=== PATIENT | female | born 1935 | race Caucasian/White ===

== ENCOUNTER 2019-04-23 20:03 | Emergency (ER) | payer MEDICARE, BC ==
[~2019-04-23] VITALS: Ht 162.6 cm; Wt 48.5 kg
[~2019-04-23 20:03] MED LIST: ADVAIR HFA 230M12 GM INH; AROMASIN25 MG PO; ASPERCREME1 EACH TOP; BACTRIM DS TAB1 EACH PO; CARAFATE 1 GM TA1 G1 PO; CLARITIN10 M2 PO; CO Q-10100 MG PO; DUONEB 2.5-0.5 M3 ML INH; GLIPIZIDE 10 MG10 MG PO; HYDROCODONE-AP1 EAC6 PO; HYDROXYCHLOROQ200 M1 PO; LASIX 20 MG TAB20 MG PO; LISINOPRIL5 MG PO; LOPERAMIDE 2 MG2 M1 PO; MULTI FOR HER PO; MULTIGEN CAPLET1 CAP PO; NASONEX17 GM NASAL; OMEPRAZOLE 20 M20 M1 PO; OMEPRAZOLE20 M2 PO; OXYBUTYNIN 5 MG5 M1 PO; OXYCODONE HCL5 MG PO; PAXIL 20 MG TAB20 MG PO; PREDNISONE 10 M10 MG PO; TUMS PO; VITAMIN B-122500 MCG PO; VITAMIN D2000 UNIT PO; ZOCOR20 MG PO
[2019-04-23] MEDS ORDERED: CIPROFLOXIN HC2.5 M1 OPHTHALMIC (21:07)
[2019-04-23 21:19] VITALS: BP 148/65
== END 2019-04-23 21:20 | disposition home or self-care (01) ==
LOC: M.ERS 20:03
DX: T15.91XA Foreign body on external eye, part unspecified, right eye, initial encounter (principal); Z86.73 Personal history of transient ischemic attack (TIA), and cerebral infarction without residual deficits; Z90.89 Acquired absence of other organs; Z90.710 Acquired absence of both cervix and uterus; Z85.3 Personal history of malignant neoplasm of breast; Z90.11 Acquired absence of right breast and nipple; Z88.6 Allergy status to analgesic agent; Z88.8 Allergy status to other drugs, medicaments and biological substances; Y92.89 Other specified places as the place of occurrence of the external cause